=== PATIENT | male | born 1960 | race Caucasian/White ===

== ENCOUNTER 2020-04-24 07:10 | Outpatient (CLI) | payer BC, SELFPAY ==
--- NOTE | 2020-04-24 07:15 | XRR_ITS ---
PROCEDURE INFORMATION: Exam: XR Abdomen, 1 View Exam date and time: 04/24/2020 7:33 AM Age: 59 years old Clinical indication: Condition or disease; Kidney or ureter condition; Calculus (stone) in kidney and calculus (stone) in ureter; Patient HX: Yearly follow up renal and ureteral stone TECHNIQUE: Imaging protocol: XR of the abdomen. Views: Frontal supine view of the abdomen. 1 View. COMPARISON: CR XR KUB [id number] 04/25/2019 7:48 AM FINDINGS: Gastrointestinal tract: Obscuration of the renal fossa by bowel gas and stool. Intraperitoneal space: Multiple subcentimeter pelvic calcifications again demonstrated. If urolithiasis is of clinical concern, CT may be of benefit for further evaluation. Bones/joints: Degenerative change and mild scoliosis. XR/XR KUB [id number] IMPRESSION: Multiple subcentimeter pelvic calcifications again demonstrated. If urolithiasis is of clinical concern, CT may be of benefit for further evaluation.
== END 2020-04-24 07:11 | disposition home or self-care (01) ==
PROVIDERS: PCP Internal Medicine; Visit Provider Urology
DX: N20.2 Calculus of kidney with calculus of ureter (principal)
CPT/HCPCS: 74018; 81001

== ENCOUNTER 2021-04-24 07:16 | Outpatient (CLI) | payer BC, SELFPAY ==
--- NOTE | 2021-04-24 07:15 | XR_ITS ---
WS: [id number] KUB, AP view, 04/24/2021 Clinical Data: urolithiasis Comparison: KUB, 04/24/2020. Findings: No abnormal intraabdominal masses are seen. There is no dilatated small bowel or evidence of obstruct ion. There are several calcifications overlying the left kidney. The right kidney is obscured by overlying colon gas and fecal material. There are phleboliths in the true pelvis. XR/XR KUB [id number] Impression: 1. Right kidney obscured by colon gas and fecal material. 2. Probable left renal calcifications.
== END 2021-04-24 07:17 | disposition home or self-care (01) ==
PROVIDERS: PCP Internal Medicine; Visit Provider Urology
DX: N20.2 Calculus of kidney with calculus of ureter (principal)
CPT/HCPCS: 74018; 81003

== ENCOUNTER 2021-05-28 07:05 | Outpatient (CLI) | payer BC, SELFPAY ==
--- NOTE | 2021-05-28 07:00 | XR_ITS ---
WS: [id number] Exam: XR KUB [id number] Date/Time of Exam: 05/28/2021 7:12 AM Reason For Exam: urolithiasis There are calcifications in the right and left upper abdomen that probably represent bilateral renal stones. No bowel obstruction or free air. Visualized organ margins are intact. Numerous pelvic calcif ications are noted probably phleboliths. Regional bony structures are intact. XR/XR KUB [id number] IMPRESSION: 1. Calcifications in the right and left upper abdomen most likely representing bilateral renal calculi. 2. No acute abdominal finding.
== END 2021-05-28 07:06 | disposition home or self-care (01) ==
PROVIDERS: PCP Internal Medicine; Visit Provider Urology
DX: N20.2 Calculus of kidney with calculus of ureter (principal)
CPT/HCPCS: 74018; 81003; 82365; 88300

== ENCOUNTER → 2021-07-16 07:46 | Outpatient (BNVA) | payer BC, SELFPAY | PROVIDERS: PCP Internal Medicine; Visit Provider Urology | DX: N20.2 Calculus of kidney with calculus of ureter (principal); N39.9 Disorder of urinary system, unspecified | CPT/HCPCS: 80048; 81003; 82131; 82140; 82340; 82436; 82507; 82570; 83735; 83935; 84100; 84300; 84550 ==

== ENCOUNTER → 2021-09-10 08:57 | Outpatient (BNVA) | payer BC, SELFPAY | PROVIDERS: PCP Internal Medicine; Visit Provider Urology | DX: N20.2 Calculus of kidney with calculus of ureter (principal) | CPT/HCPCS: 81003 ==

== ENCOUNTER 2022-02-12 08:27 | Outpatient (CLI) | payer BC, SELFPAY ==
[2022-02-12 10:34] LABS: Blood Urea Nitrogen 18 mg/dL (8-23); Calcium 9.6 mg/dL (8.5-10.5); Carbon Dioxide 17 mmol/L (22-29); Chloride 97 mmol/L (98-107); Glomerular Filtration Rate 68.1 mL/min (90-130); Glucose 85 mg/dL (65-115); Osmolality Calculated 271 mOsm/kg (285-295); Phosphorus 3.1 mg/dL (2.5-4.5); Sodium 130 mmol/L (136-145); Uric Acid 5.2 mg/dL (3.4-7.0)
[2022-02-12 10:35] LABS: Anion Gap 20.4 (5-19); Potassium 4.4 mmol/L (3.5-5.1)
[2022-02-16 16:18] LABS: Calcium-Oxalate 1.64 (<2.00); Urine Ammonia 24 Hour 27 mEq/day (14-62); Urine Citric Acid 24 Hour 777 mg/day (>320); Urine PH 24 Hour 5.6 (5.5-7.0); Urine Phosphorus 24 Hour 1798 mg/day (<1100); Urine Potassium 24 Hour 85 mEq/day (19-135); Urine Sulfate 24 Hour 24 mmol/day (<30)
== END 2022-02-12 08:28 | disposition home or self-care (01) ==
LOC: LAB 08:39
PROVIDERS: PCP Internal Medicine; Visit Provider Urology
DX: N20.2 Calculus of kidney with calculus of ureter (principal)
CPT/HCPCS: 36415; 80048; 81003; 82131; 82140; 82340; 82436; 82507; 82570; 83735; 83935; 84100; 84300; 84550

== ENCOUNTER 2022-03-25 08:26 | Outpatient (CLI) | payer BC, SELFPAY ==
--- NOTE | 2022-03-25 08:30 | XR_ITS ---
WS: [id number] Exam: XR KUB [id number] Date/Time of Exam: 03/25/2022 8:39 AM Reason For Exam: CALCULUS OF KIDNEY WITH CALCULUS OF URETER No bowel obstruction or free air. Multiple calcifications superimposing the renal silhouettes apparen tly representing known renal stones. Nonspecific bilateral pelvic calcifications. No sign of organ en largement. Bony structures are intact as visualized. XR/XR KUB [id number] IMPRESSION: 1. No acute abdominal process. 2. Calcifications noted in the region of both kidneys apparently representing m ultiple bilateral known renal stones.
== END 2022-03-25 08:27 | disposition home or self-care (01) ==
LOC: RAD 08:27
PROVIDERS: PCP Internal Medicine; Visit Provider Urology
DX: N20.2 Calculus of kidney with calculus of ureter (principal)
CPT/HCPCS: 74018; 81003

== ENCOUNTER → 2022-07-10 08:29 | Outpatient (BNVA) | payer BC, SELFPAY | PROVIDERS: PCP Internal Medicine; Visit Provider Urology | DX: N20.9 Urinary calculus, unspecified (principal) | CPT/HCPCS: 81003 ==

== ENCOUNTER 2023-01-06 09:08 | Outpatient (CLI) | payer BC, SELFPAY ==
--- NOTE | 2023-01-06 09:50 | XR_ITS ---
WS: [id number] XR KUB [id number] REASON FOR EXAM: STONES FINDINGS: There appear to be several 3 mm calculi within the right kidney and several calculi in the left kidne y 3 to 6 mm in diameter. As best as can be ascertained there is been no significant interval change c ompared to 03/25/2022. No other urinary tract calculi are identified. No other significant finding. XR/XR KUB [id number] IMPRESSION: Bilateral intrarenal calculi as above.
== END 2023-01-06 09:09 | disposition home or self-care (01) ==
PROVIDERS: PCP Internal Medicine; Visit Provider Internal Medicine
DX: N20.0 Calculus of kidney (principal); N40.1 Benign prostatic hyperplasia with lower urinary tract symptoms
CPT/HCPCS: 74018; 81003